=== PATIENT | male | born 1935 | race Caucasian/White ===

== ENCOUNTER → 2019-12-11 10:57 | Outpatient (BNVA) | payer MEDICARE, OTHER, SELFPAY | PROVIDERS: PCP Internal Medicine; Referring Provider Internal Medicine; Visit Provider Urology | DX: N20.0 Calculus of kidney (principal) | CPT/HCPCS: 99212 ==

== ENCOUNTER 2021-03-30 14:43 | Outpatient (REF) | payer MEDICARE, OTHER, SELFPAY ==
--- NOTE | ~2021-03-30 | US_ITS ---
EXAMINATION: US RETROPERITONEAL LIMITED (RENAL ONLY) CLINICAL INFORMATION: Calculus of kidney. COMPARISON: None TECHNIQUE: Real-time imaging of the kidneys. FINDINGS: RIGHT KIDNEY: 9.6 x 4.8 x 5.5 cm (SAG x AP x TRV). The kidney is normal in size, contour, and echogenicity. Renal cortical thickness is normal. No renal calculi or hydronephrosis. There is an anechoic cyst midpole laterally measuring 0.90 x 0.90 x 0.75 cm. LEFT KIDNEY: 10.1 x 5.4 x 5.4 cm (SAG x AP x TRV). The kidney is normal in size, contour, and echogenicity. Renal cortical thickness is normal. No focal parenchymal lesions or hydronephrosis. There are echogenic two midpole stones measuring 0.34 x 0.28 x 0.27 cm and 0.40 x 0.18 x 0.35 cm. US/US renal BI IMPRESSION: Two nonobstructive echogenic stones in the midpole left kidney. There is no caliectasis or hydronephrosis. Anechoic cyst midpole right kidney.
== END 2021-03-30 14:44 | disposition home or self-care (01) ==
LOC: HO.US 14:43
PROVIDERS: Visit Provider Urology
DX: N20.0 Calculus of kidney (principal)
CPT/HCPCS: 76775

== ENCOUNTER → 2021-04-15 14:46 | Outpatient (BNVA) | payer MEDICARE, OTHER, SELFPAY | PROVIDERS: PCP Internal Medicine; Visit Provider Urology | DX: N40.0 Benign prostatic hyperplasia without lower urinary tract symptoms (principal); N20.0 Calculus of kidney | CPT/HCPCS: Q3014 ==

== ENCOUNTER 2022-04-17 15:50 | Outpatient (REF) | payer MEDICARE, OTHER, SELFPAY ==
--- NOTE | ~2022-04-17 | US_ITS ---
EXAMINATION: US RETROPERITONEAL LIMITED (RENAL ONLY) CLINICAL INFORMATION: Calculus of kidney. COMPARISON: Renal ultrasound 03/30/2021 TECHNIQUE: Real-time imaging of the kidneys. FINDINGS: RIGHT KIDNEY: 10.0 x 3.6 x 4.8 cm (SAG x AP x TRV). The kidney is normal in size, contour, and echogenicity. Renal cortical thickness is normal. No renal calculi or hydronephrosis. There is anechoic cyst in midpole measuring 0.7 x 0.8 x 0.8 cm LEFT KIDNEY: 9.0 x 4.7 x 4.8 cm (SAG x AP x TRV). The kidney is normal in size, contour, and echogenicity. Renal cortical thickness is normal. No focal parenchymal lesions or hydronephrosis. There is echogenic stone in midpole measuring 0.3 x 0.2 x 0.3 cm. There is no caliectasis. US/US renal BI IMPRESSION: Midpole right renal cyst. Nonobstructive echogenic calculi midpole left kidney..
== END 2022-04-17 15:51 | disposition home or self-care (01) ==
LOC: HO.US 15:50
PROVIDERS: PCP Student in an Organized Health Care Education/Training Program; Visit Provider Urology
DX: N20.0 Calculus of kidney (principal)
CPT/HCPCS: 76775

== ENCOUNTER 2022-07-28 13:47 | Outpatient (AMB) | payer MEDICARE, OTHER, SELFPAY ==
--- NOTE | 2022-07-28 13:54 | MHC.OFFVIS ---
Intake Intake Visit Reasons: 1Y US(set) Intake Note: Patient is present for Telephone Ultrasound Urology Med: Tamsulosin Antibiotic Allergy: None Blood Thinner: none Medication List - Last Reconciled 07/28/22 by Jai Ross MD donepezil mg PO pantoprazole mg PO pantoprazole mg PO potassium citrate ER 10 mEq PO BID 90 days simvastatin mg PO tamsulosin mg PO warfarin mg PO HPI HPI Comments History of Present Illness Details Jordan is a pleasant male. He is a patient of Dr. Bourgeois. He is seen for the following urologic conditions - nephrolithiasis with renal cysts - lower urinary tract symptoms Telemedicine evaluation 15 minute consultation Doximity farhad Video attempted Accompanied by daughter Minimal issue with urinary performance Continues with tamsulosin Cyst stable Yearly follow-up Nephrolithiasis/Urolithiasis:? They are here for further evaluation of nephrolithiasis. ? Urolithiasis was diagnosed a number of years ago. ? The patient previously had kidney stones whose composition w uric acid, calcium oxalate, diagnosed after surgical stone removal. ? Laboratory investigations include no recent labs. ? 24 Hour urine evaluation Low Urine volume < 2.0 liters, Low citrate < 400, High uric acid. ? Prior treatment(s) include ESWL, PCNL all right sided, and, medical management, with allopurinol, with potassium citrate ? 08/23 allopurinol with potassium citrate ? Prior imaging includes 07/23 , a renal ultrasound, left cyst, right hypoechoic cyst < 1cm ? 07/24 , a renal ultrasound bilateral renal cyst, right side small stones 4 mm - stable - 04/27 small left renal stone ? UA today shows 5.5-6.0, high specific gravity suggestive of relative dehydration. ? Current therapeutic plan will be to continue with imaging surveillance, General advice to maintain good fluid intake for urine greater than 1.5 L per day, reduce salt and reduce protein and acid loads was provided..? PFSH Medical History BPH (benign prostatic hyperplasia) Diverticulitis Gout HTN (hypertension) Hyperdense renal cyst Hyperuricosuria Hypocitraturia Surgical History History of surgery Review of Systems Const All systems reviewed & are unremarkable except as noted in HPI and below Reports no additional complaints Resp Reports no additional complaints GI Reports no additional complaints Reports as per HPI Musc Reports no additional complaints Physical Exam Telemedicine evaluation Appropriate responses Regular breathing rate and rhythm HEENT Head: Yes normal to inspection Ears: hearing grossly normal bilaterally Eyes General: appearance normal, both eyes and all related structures Neck Neck: Yes normal visual inspection Chest Chest palpation & inspection: normal inspection of the chest Resp Effort & Inspection: normal respiratory effort and able to speak in complete sentences Assessment & Plan Assessment & Plan (1) Nephrolithiasis: Code(s): N20.0 - Calculus of kidney (2) BPH (benign prostatic hyperplasia): Code(s): N40.0 - Benign prostatic hyperplasia without lower urinary tract symptoms Plan Twelve month follow-up Continue citrate Orders: Orders US renal BI 364 Days N20.0 - Calculus of kidney Medications: Refilled potassium citrate ER 10 mEq PO BID 180 tabs 3RF 90 days N20.0 - Calculus of kidney Patient Instructions: Imaging studies, laboratory and physical exam results were discussed and reviewed in detail. No major barriers to patient understanding were identified. An opportunity to ask questions regarding the treatment plan was provided. All questions were answered. The patient expressed understanding and agreement with the above treatment plan. The patient is aware they should contact our office by phone for worsening of their current condition or the appearance of new urologic symptoms. Compliance is encouraged with any medications and followup testing that is ordered. It is a privilege to participate in the urologic care of your patient. If you have any questions or concerns regarding treatment for the above conditions, or other urologic issues, please do not hesitate to contact me. The office telephone contact is [phone]. This note is constructed using voice recognition software. While every effort has been made to ensure accuracy slitter and rewinder errors may have been included. Yours sincerely, Dr Jai Ross MD, [facility] - Urology Providers of Expert, Compassionate Care for the Genitourinary System Telehealth Telehealth Location of provider rendering services: practice address Location of patient: address on file Patient Identification confirmed using: Name, : Yes Telehealth method: video Patient verbally consented to treatment: Yes Patient verbally consented to billing insurance company: Yes Patient informed of any privacy concerns related to visit: Yes Coding Level of Care Code Tele Est Pt Level 4 (52958) Diagnoses Nephrolithiasis N20.0 BPH (benign prostatic hyperplasia) N40.0
== END 2022-07-28 15:12 | disposition home or self-care (01) ==
LOC: HO.HUSH 13:47
PROVIDERS: PCP Student in an Organized Health Care Education/Training Program; Visit Provider Urology
DX: N20.0 Calculus of kidney (principal); N40.0 Benign prostatic hyperplasia without lower urinary tract symptoms
CPT/HCPCS: 99213

== ENCOUNTER → 2022-07-28 13:47 | Outpatient (BNVA) | payer MEDICARE, OTHER, SELFPAY | PROVIDERS: PCP Student in an Organized Health Care Education/Training Program; Visit Provider Urology ==